=== PATIENT | male | born 1955 | race Caucasian/White ===

== ENCOUNTER 2023-05-29 10:32 | Day surgery (SDC) | payer MEDICARE ==
[~2023-05-29] VITALS: Ht 182.9 cm; Wt 117.9 kg
[~2023-05-29 10:32] MED LIST: LEVO50TA5 PO; LISI20TA33 PO
[2023-05-29] MEDS: PROPARACAINE 0.5% OPHTH SOL 15ML OD ONE (11:10)
[2023-05-29] MEDS: CYCLOPENTOLATE 1% OPHTH SOLN 2ML BTL OD SCH (11:23)
[2023-05-29] MEDS: PHENYLEPHRINE 2.5% OPHTH SOL 2ML OD SCH (11:23)
[2023-05-29] MEDS: OFLOXACIN 0.3 % (OCUFLOX) OPTH SOL 5ML OD SCH (11:23)
[2023-05-29] MEDS: TROPICAMIDE 1% OPHTH SOLN 15ML OD SCH (11:23)
[2023-05-29] MEDS ORDERED: fentaNYL 100 MCG/2 ML INJECTION As Ordered ONE (12:05)
[2023-05-29] MEDS ORDERED: MIDAZOLAM INJ 2MG/2ML VIAL As Ordered ONE (12:05)
[2023-05-29] MEDS: LIDOCAINE 1% SDV 5ML VIAL As Ordered ONE (12:09)
[2023-05-29] MEDS: CEFUROXIME 1MG/0.1ML INTRACAMERAL INJ As Ordered ONE (12:10)
[2023-05-29] MEDS: BSS IRR 500ML/OMIDRIA 4ML IRR BAG (OR ONLY) As Ordered ONE (12:10)
[2023-05-29] MEDS ORDERED: SEVOFLURANE INHAL SOLN 250 ML BTL As Ordered ONE (12:19)
[2023-05-29 12:23] VITALS: BP 122/87; TEMP 98.7; O2SAT 95
== END 2023-05-29 12:35 | disposition home or self-care (01) ==
LOC: M SDC 10:32
PROVIDERS: ATTEND Ophthalmology
DX: H25.11 Age-related nuclear cataract, right eye (principal); I10 Essential (primary) hypertension; E03.9 Hypothyroidism, unspecified; G47.30 Sleep apnea, unspecified; Z79.890 Hormone replacement therapy; Z79.899 Other long term (current) drug therapy; Z87.891 Personal history of nicotine dependence
CPT/HCPCS: 66984; J0697; J1097; J2250; J3010; V2632